=== PATIENT | male | born 1970 | race Caucasian/White ===

== ENCOUNTER 2020-11-21 01:29 | Emergency (ER) | payer OTHER ==
[2020-11-21 02:06] LABS: BASOPHIL 0.5 % (0-2); EOSINOPHIL 0.7 % (0-5); HCT 50.1 % (42.0-52.0); HGB 17.1 g/dl (13.2-18.0); LYMPHOCYTE 16.9 % (15-48); MCH 30.2 pg (25.0-31.0); MCHC 34.1 g/dL (32.0-36.0); MCV 88.4 fL (78.0-100.0); MONOCYTE 6.7 % (0-12); MPV 8.7 fL (6.0-9.5); NEUTROPHIL 74.5 % (41-80); NRBC 0; PLT 293 K/uL (150-400); RBC 5.67 M/uL (4.70-6.00); RDW 12.7 % (11.5-14.0); WBC 13.1 K/uL (4.0-10.5)
[2020-11-21 02:22] LABS: INR 0.98 (0.9-1.2); PROTHROMBIN TIME 12.3 SECONDS (11.4-13.6)
[2020-11-21 02:32] LABS: ALBUMIN 3.9 g/dL (3.4-5.0); BILIRUBIN - TOTAL 0.2 mg/dL (0.2-1.0); BUN/CREAT RATIO (CALC) 14.9 RATIO; CREATININE 0.94 mg/dL (0.67-1.17); GLOBULIN (CALCULATION) 3.7 g/dL; MAGNESIUM 1.8 mg/dL (1.8-2.4); POTASSIUM 4.1 mmol/L (3.5-5.1); TOTAL PROTEIN 7.6 g/dL (6.4-8.2)
== END 2020-11-21 05:48 | disposition home or self-care (01) ==
LOC: FER 01:29
PROVIDERS: Emergency Medicine
DX: T82.198A Other mechanical complication of other cardiac electronic device, initial encounter (principal); I49.01 Ventricular fibrillation; I10 Essential (primary) hypertension; Z79.899 Other long term (current) drug therapy
CPT/HCPCS: 36415; 71045; 80053; 83735; 83880; 84484; 85025; 85610; 93005